=== PATIENT | female | born 1975 | race Caucasian/White ===

== ENCOUNTER 2020-08-20 12:27 | Emergency (ER) | payer OTHER, SELFPAY ==
--- NOTE | ~2020-08-20 | XR_ITS ---
EXAMINATION: XR chest 1V EXAM DATE: 08/20/2020 13:25 INDICATION: Shortness of breath. TECHNIQUE: Frontal and lateral projections of the chest obtained and reviewed. Comparison is made to prior examination from 03/18/2018. FINDINGS: Small linear left perihilar scarring. The lungs are otherwise clear. There are no pleural effusions. The cardiomediastinal silhouette is within normal limits. There is no pneumothorax suspe cted. Cervical hardware. Cholecystectomy clips. Contrast in the stomach. IMPRESSION: No acute cardiopulmonary findings. Reviewed, dictated and finalized at location A.
--- NOTE | ~2020-08-20 | CT_ITS ---
EXAMINATION: CT cervical spine wo [facility] EXAM DATE: 08/20/2020 13:02 INDICATION: Neck pain. TECHNIQUE: Spiral CT of the cervical spine was performed without contrast. Axial images were reviewe d. Coronal and sagittal reformatted images were also reviewed. The dose-length product (DLP) for thi s examination was 492.91 mGy-cm. The exposure was tailored according to patient size (auto mA exposu re control), and iterative reconstruction (ASIR) was used as additional dose reduction technique. ere is no prior study for comparison. FINDINGS: There are disc replacements at C5-6 and C6-7. C6 has almost complete loss of its height an d there is been some loss of C5 and C7 causing kyphosis. There are no bony erosions identified. Dario sammi soft tissue is unremarkable. There are no acute fractures identified. The odontoid process is i ntact. The lateral masses of C1 line up with C2. Level by level evaluation: C2-C3: Disc does not extend beyond the endplate margin. Uncovertebral joint arthropathy: None. Facet joint arthropathy: Mild bilateral. Neural foraminal stenosis: No stenosis. Central canal stenosis: No stenosis. C3-C4: Disc does not extend beyond the endplate margin. Uncovertebral joint arthropathy: None. Facet joint arthropathy: Mild to moderate right, mild left. Neural foraminal stenosis: No stenosis. Central canal stenosis: No stenosis. C4-C5: Disc does not extend beyond the endplate margin. Uncovertebral joint arthropathy: None. Facet joint arthropathy: Mild bilateral. Neural foraminal stenosis: No stenosis. Central canal stenosis: No stenosis. C5-C6: There is disc replacement. Uncovertebral joint arthropathy: Moderate bilateral, left greater than right. Facet joint arthropathy: Mild to moderate left, mild right. Neural foraminal stenosis: Moderate left, mild right. Central canal stenosis: Mild. C6-C7: Disc does not extend beyond the endplate margin. Uncovertebral joint arthropathy: Mild to moderate bilateral. Facet joint arthropathy: Mild to moderate bilateral. Neural foraminal stenosis: No stenosis. Central canal stenosis: No stenosis. C7-T1: Disc does not extend beyond the endplate margin. Uncovertebral joint arthropathy: None. Facet joint arthropathy: Mild bilateral. Neural foraminal stenosis: No stenosis. Central canal stenosis: No stenosis. IMPRESSION: 1. No acute cervical findings. 2. Moderate left neural foraminal stenosis at C5-6. 3. C5-6 and C6-7 disc replacements with osseous fusion, loss of these vertebral body heights and kyp hosis. Reviewed, dictated and finalized at location A. IMPRESSION: 1. No acute cervical findings. 2. Moderate left neural foraminal stenosis at C5-6. 3. C5-6 and C6-7 disc replacements with osseous fusion, loss of these vertebra l body heights and kyphosis.
--- NOTE | ~2020-08-20 | XR_ITS ---
EXAMINATION: XR barium swallow EXAM DATE: 08/20/2020 13:25 INDICATION: Difficulty swallowing. Cervical surgery, states history of MRSA infection. TECHNIQUE: thick contrast barium esophagram examination was performed in the upright position. Pulse d dose reduction fluoroscopy was used with fluoroscopic time of0.4 minutes. A total of 83 images ob tained for the exam. The DAP for this procedure was 1.8 Gycm2. Correlation is made to CT cervical spi ne 08/20/2020. FINDINGS: The pharynx is symmetric and without evidence of mass lesion or mucosal irregularity. Ther e is no esophageal stricture or mass identified. There are no esophageal diverticula. Small sliding gastroesophageal hiatal hernia. IMPRESSION: Small sliding gastroesophageal hiatal hernia. Reviewed, dictated and finalized at location A.
[2020-08-20 12:30] VITALS: PULSE 91; RESP 16; TEMP 36.2; O2SAT 97
[2020-08-20 12:36] VITALS: O2SAT 98
--- NOTE | 2020-08-20 12:36 | ECG_ITS ---
Measurements Intervals [place] Rate: 91 P: 47 WA: 179 QRS: 15 QRSD: 94 T: 35 QT: 286 QTc: 352 Interpretive Statements SINUS RHYTHM NONSPECIFIC ST & T-WAVE ABNORMALITY- DIFFUSE LEADS BORDERLINE ECG Electronically Signed On 08-20-2020 13:09:08 CDT by Guillermo Mendoza D.O.
--- NOTE | 2020-08-20 13:02 | ED.GENADULT ---
HPI - General Adult General Chief complaint: Shortness of Breath/Dyspnea Stated complaint: SOB Time Seen by Provider: 08/20/20 12:34 Source: patient, EMS and RN notes reviewed Mode of arrival: EMS Limitations: no limitations History of Present Illness HPI narrative: Patient is 45 years old white female presents to the ED with raspy voice, difficulty swallowing and pain in the throat and difficulty breathing started yesterday morning. Patient was seen by her neurosurgeon 1 week ago because of right upper extremity pain, patient is telling me that she is not a candidate for any surgery because her body will not take anesthesia anymore. History of vocal cord paralysis,, cervical fusion, history of COVID-19 infection June 2020, patient is DNR. Patient's boyfriend told me that patient been having raspy voice since she had COVID-19 infection June 2020. Patient reported that is worse than before. Related Data Home Medications Medication Instructions Recorded Confirmed levofloxacin 500 mg tablet 500 mg PO DAILY 04/28/19 08/12/20 medical cannabis #1 ea 10/15/19 08/12/20 Allergies Allergy/AdvReac Type Severity Reaction Status Date / Time cephalexin Allergy Severe Swelling Verified 08/20/20 12:53 of Lip/Tongue/Throat bupropion Allergy Unknown HIVES Verified 08/20/20 12:38 naproxen Allergy Unknown unknown Verified 08/20/20 12:38 Review of Systems Review of Systems: Narrative: CONSTITUTIONAL: Denies fever, chills, or sweats. EYES: Denies visual changes, redness, or discharge. ENT: Denies rhinorrhea, congestion, sore throat, or otalgia. CARDIOVASCULAR: Denies chest pain, palpitations, or edema. RESPIRATORY: Denies cough or dyspnea. GASTROINTESTINAL: Denies abdominal pain, nausea, vomiting, or diarrhea. GENITOURINARY: Denies dysuria or hematuria. SKIN: Denies rash or itching. MUSCULOSKELETAL: Denies back pain, joint pain, or myalgia. NEUROLOGIC: Denies headache, numbness, or weakness. PSYCHIATRIC: Denies anxiety or depression. COUNT INCLUDES THE [facility] Past Medical History Medical History BMI 37.0-37.9, adult BMI 38.0-38.9,adult COPD (chronic obstructive pulmonary disease) COVID-19 (~06/22/20) Edema, peripheral Elevated liver enzymes Essential (primary) hypertension Migraine headache without aura Neuropathy Tension headache, chronic Tobacco use disorder, continuous UTI (urinary tract infection) Family History Family History Grandparent Diabetes mellitus, Onset Age: 77 Family history of cardiovascular disease Family history of kidney disease, Onset Age: 80 Family history of chronic obstructive pulmonary disease Family history of pancreatic cancer Family history of congestive heart failure Father Asthma Patient's father is in good health Mother Patient's mother is in good health Social History Social History Smoking status: Never smoker Alcohol intake: current Drinks per week: 1 Substance use: current Substance use type: marijuana Other substance usage details: medical marijuana Exam Narrative: Exam Narrative: General appearance: Well-developed, well-nourished, raspy voice, boyfriend at the bedside Skin: Normal color Head: Normocephalic, nontraumatic Eyes: Clear conjunctiva ENT: Oropharynx normal, ears normal, nose normal Neck: Supple, nontender Chest and respiratory: Airway patent, no respiratory distress, no accessory muscle use Heart: Regular rate/rhythm Abdomen: Soft, nontender, no organomegaly, quiet bowel sounds Vascular: Normal peripheral pulses, normal capillary refill. Musculoskeletal: Normal range of motion, nontender back Neurologic: Alert and oriented ?3, SEISMIC PLOTTER is normal as tested, no gross motor deficit
[2020-08-20 13:36] LABS: Basophils Percent Auto 0.5 % (0.2-1.2); Eosinophils Absolute Auto 0.2 K/mm3 (0-0.3); Eosinophils Percent Auto 3.1 % (0-4.4); Hematocrit 37.6 % (37.0-47.0); Hemoglobin 13.3 g/dL (12.0-15.0); Immature Granulocyte Absolute 0.02 K/mm3 (0.00-0.031); Immature Granulocyte Percent A 0.3 % (0-0.5); Lymphocytes Absolute Auto 2.65 K/mm3 (0.9-3.2); Lymphocytes Percent Auto 45.1 % (18.3-44.2); Mean Corpuscular HGB Conc 35.4 g/dl (32-36); Mean Corpuscular Hemoglobin 33.7 pg (26-34); Mean Corpuscular Volume 95.2 fl (80-100); Mean Platelet Volume 9.1 fl (7.4-10.4); Monocytes Absolute Auto 0.4 K/mm3 (0.1-0.6); Monocytes Percent Auto 6.5 % (2.6-8.5); Neutrophils Absolute Auto 2.6 K/mm3 (1.3-6.7); Neutrophils Percent Auto 44.5 % (45.5-73.1); Platelet Count Result 255 k/mm3 (150-375); Red Blood Count 3.95 M/mm3 (4.2-5.4); White Blood Count 5.9 K/mm3 (4.5-10.0)
[2020-08-20] MEDS: MORPHINE SULFATE (*CRX) 4 MG/ML INJ IV PUSH (13:46)
[2020-08-20 13:47] VITALS: BP 118/92; PULSE 89; RESP 20; O2SAT 98
[2020-08-20] MEDS: ONDANSETRON INJ 4 MG/2 ML VIAL IV PUSH (13:47)
[2020-08-20 13:48] LABS: Alanine Aminotransferase 39 U/L (4-35); Albumin Level 4.3 g/dL (3.5-5.1); Alkaline Phosphatase 74 U/L (38-126); Anion Gap 7 mmol/L (8-16); Aspartate Amino Transferase 36 U/L (14-36); Bilirubin,Total 0.2 mg/dL (0.2-1.3); Blood Urea Nitrogen 15 mg/dL (7-17); Calcium 9.2 mg/dL (8.4-10.2); Carbon Dioxide 27 mmol/L (22-30); Chloride 107 mmol/L (98-107); Estimated CRCL calculation 80 ml/min; Estimated Glomerular Filt Rate > 60; Glucose 101 mg/dL (65-105); Sodium 141 mmol/L (137-145)
[2020-08-20 14:28] VITALS: BP 113/99; PULSE 81; RESP 18; O2SAT 100
[2020-08-20] MEDS: POTASSIUM CHLORIDE 20 MEQ PACKET (FOR LIQUID) 40 MEQ PO (15:22)
== END 2020-08-20 16:30 | disposition home or self-care (01) ==
PROVIDERS: Emergency Provider Emergency Medicine; PCP Family Medicine
DX: J02.9 Acute pharyngitis, unspecified (principal); E87.6 Hypokalemia; M54.12 Radiculopathy, cervical region; M48.02 Spinal stenosis, cervical region; Z86.16 Personal history of COVID-19; Z98.1 Arthrodesis status; K44.9 Diaphragmatic hernia without obstruction or gangrene; R94.31 Abnormal electrocardiogram [ECG] [EKG]
CPT/HCPCS: 36415; 71045; 72125; 74220; 80053; 85025; 87081; 87880; 93005; 96374; 96375; 99284; A9270; J2270; J2405

== ENCOUNTER 2020-09-01 02:21 | Day surgery (SDC) | payer OTHER, SELFPAY ==
[2020-08-23 14:20] VITALS: BMI 34.4
[2020-09-01 08:01] VITALS: BP 133/85; PULSE 102; RESP 18; TEMP 36.9; O2SAT 96; BMI 35.8
[2020-09-01] MEDS: LACTATED RINGERS 1,000 ML 150 ML IV CONT (08:13)
--- NOTE | 2020-09-01 08:22 | WPDANESEPPF ---
Anes - Initial Pre Proc Eval Procedure: Operation Date: 09/01/20 09:15 Proposed Procedures p Esophagogastroduodenoscopy - Edi Stauffer MD Date/Time: 09/01/20 08:22 Surgeon: Edi Stauffer MD Pre Op Diagnosis: GERD, esophagitis Patient Data Age: 45 Gender: F Height: 5 ft 4 in Weight: 94.6 kg Last Vital Signs Temp 98.4 F 09/01/20 08:01 Pulse 102 H 09/01/20 08:01 Resp 18 09/01/20 08:01 BP 133/85 09/01/20 08:01 Pulse Ox 96 09/01/20 08:01 Allergies Allergy/AdvReac Type Severity Reaction Status Date / Time cephalexin Allergy Severe Swelling Verified 09/01/20 07:56 of Lip/Tongue/Throat bupropion Allergy Unknown HIVES Verified 09/01/20 07:56 naproxen Allergy Unknown unknown Verified 09/01/20 07:56 shrimp Allergy Swelling Verified 09/01/20 07:58 Home Medications Medication Instructions Recorded Confirmed Type medical cannabis #1 ea 10/15/19 08/23/20 History sumatriptan succinate 100 mg tablet 100 mg PO .COMPLEX PRN #10 tablet 02/20/20 09/01/20 Rx [id number]-rhxcsnbhnpidt-[id number] 1 cap PO Q6H PRN #60 cap 03/01/20 09/01/20 Rx 50 mg-300 mg-40 mg capsule albuterol sulfate 90 mcg/actuation 2 inh INHALATION Q4H PRN #54 g 04/01/20 09/01/20 Rx aerosol inhaler esomeprazole magnesium 40 mg 40 mg PO DAILY #30 cap 04/01/20 09/01/20 Rx capsule,delayed release hydrochlorothiazide 12.5 mg tablet 12.5 mg PO DAILY #90 tablet 04/01/20 09/01/20 Rx duloxetine 60 mg capsule,delayed 60 mg PO BID #180 cap 04/08/20 09/01/20 Rx release umeclidinium 62.5 mcg-vilanterol 1 inh INHALATION DAILY #180 ea 04/08/20 09/01/20 Rx 25 mcg/actuation powdr for inhalation diazepam 5 mg tablet 10 mg PO BID PRN #60 tablet 07/12/20 09/01/20 Rx tramadol 50 mg tablet 50 mg PO .COMPLEX PRN #240 tablet 07/29/20 09/01/20 Rx lisinopril 40 mg tablet 40 mg PO DAILY #90 tablet 08/12/20 09/01/20 Rx potassium chloride 40 meq PO BID 4 Days #120 ml 08/20/20 09/01/20 Rx acetaminophen 300 mg-codeine 30 mg 1 tablet PO Q4-6H PRN #120 tablet 08/25/20 09/01/20 Rx tablet Patient hx anesthesia problems: none Family hx anesthesia problems: none PMFSH Past Medical History Medical History BMI 37.0-37.9, adult BMI 38.0-38.9,adult COPD (chronic obstructive pulmonary disease) COVID-19 (~06/22/20) Edema, peripheral Elevated liver enzymes Essential (primary) hypertension Migraine headache without aura Neuropathy Tension headache, chronic Tobacco use disorder, continuous UTI (urinary tract infection) Family History Family History Grandparent Diabetes mellitus, Onset Age: 77 Family history of cardiovascular disease Family history of kidney disease, Onset Age: 80 Family history of chronic obstructive pulmonary disease Family history of pancreatic cancer Family history of congestive heart failure Father Asthma Patient's father is in good health Mother Patient's mother is in good health Social History Social History Smoking status: Never smoker Alcohol intake: current Drinks per week: 1 Substance use: current Substance use type: marijuana Other substance usage details: MEDICAL MARIJUANA Living arrangements: with family Gender identity (if verbalized by the patient): Female Spiritual care concerns: No Anes - Eval Final PreProcedure Day of Procedure 09/01/20 08:22 Patient weight: overweight Heart: regular rate and rhythm Lungs: clear to auscultation Airway: Mallampati scale class III Neurological: alert and oriented Last oral intake: >/= 8 hours ASA classification: III Emergent: no Anesthetic plan: proceed Anesthesia type and monitoring: general GIVS and standard monitoring Informed Consent: The patient's anesthetic plan and its attendant risks and benefits were discussed with the patient/family
--- NOTE | 2020-09-01 09:23 | PM.HPGS ---
History of Present Illness History of Present Illness Consent: Risks, benefits, and alternatives have been discussed and questions answered. Patient agrees to proceed with procedure. Chief complaint: GERD, esophagitis Narrative: Mabel England is a 45 year old female with chronic neck pain with previous cervical osteomyelitis after surgery, vocal cord paralysis. EGD few years ago. She continues to have some reflux symptoms despite Nexium 40 mg daily. Review of Systems Constitutional: Constitutional: Denies headache(s) and Denies weakness Eyes: Eyes: Denies blurry vision ENT: Reports Normal hearing present, Denies headache(s) and Denies neck pain Cardiovascular: Cardiovascular: Denies chest pain and Denies dyspnea Respiratory: Respiratory: Denies dyspnea Gastrointestinal: Gastrointestinal: Reports no additional gastrointestinal complaints Genitourinary: Genitourinary: Denies dysuria Musculoskeletal: Musculoskeletal: Denies neck pain Integumentary/Breasts: Skin/Breast: Denies dry skin Neurologic: Reports Normal hearing present, Denies headache(s) and Denies weakness Psychiatric: Psychiatric: Denies anxiety Endocrine: Endocrine: Denies change in body appearance Hematologic/Lymphatic: Hematologic/Lymphatic: Denies easy bleeding Allergic/Immunologic: Allergic/Immunologic: Denies urticaria PMFSH Past Medical History Medical History BMI 37.0-37.9, adult BMI 38.0-38.9,adult COPD (chronic obstructive pulmonary disease) COVID-19 (~06/22/20) Edema, peripheral Elevated liver enzymes Essential (primary) hypertension Migraine headache without aura Neuropathy Tension headache, chronic Tobacco use disorder, continuous UTI (urinary tract infection) Family History Family History Grandparent Diabetes mellitus, Onset Age: 77 Family history of cardiovascular disease Family history of kidney disease, Onset Age: 80 Family history of chronic obstructive pulmonary disease Family history of pancreatic cancer Family history of congestive heart failure Father Asthma Patient's father is in good health Mother Patient's mother is in good health Social History Social History Smoking status: Never smoker Alcohol intake: current Drinks per week: 1 Substance use: current Substance use type: marijuana Other substance usage details: MEDICAL MARIJUANA Living arrangements: with family Gender identity (if verbalized by the patient): Female Spiritual care concerns: No Meds Home Medications and Allergies Home Medications Medication Instructions Recorded Confirmed Type medical cannabis #1 ea 10/15/19 08/23/20 History sumatriptan succinate 100 mg tablet 100 mg PO .COMPLEX PRN #10 tablet 02/20/20 09/01/20 Rx mtiybuimfe-ewvxdwvsabhsy-hmnwfged 1 cap PO Q6H PRN #60 cap 03/01/20 09/01/20 Rx 50 mg-300 mg-40 mg capsule albuterol sulfate 90 mcg/actuation 2 inh INHALATION Q4H PRN #54 g 04/01/20 09/01/20 Rx aerosol inhaler esomeprazole magnesium 40 mg 40 mg PO DAILY #30 cap 04/01/20 09/01/20 Rx capsule,delayed release hydrochlorothiazide 12.5 mg tablet 12.5 mg PO DAILY #90 tablet 04/01/20 09/01/20 Rx duloxetine 60 mg capsule,delayed 60 mg PO BID #180 cap 04/08/20 09/01/20 Rx release umeclidinium 62.5 mcg-vilanterol 1 inh INHALATION DAILY #180 ea 04/08/20 09/01/20 Rx 25 mcg/actuation powdr for inhalation diazepam 5 mg tablet 10 mg PO BID PRN #60 tablet 07/12/20 09/01/20 Rx tramadol 50 mg tablet 50 mg PO .COMPLEX PRN #240 tablet 07/29/20 09/01/20 Rx lisinopril 40 mg tablet 40 mg PO DAILY #90 tablet 08/12/20 09/01/20 Rx potassium chloride 40 meq PO BID 4 Days #120 ml 08/20/20 09/01/20 Rx acetaminophen 300 mg-codeine 30 mg 1 tablet PO Q4-6H PRN #120 tablet 08/25/20 09/01/20 Rx tablet Allergies Allergy/AdvReac Type Severity Reaction
[2020-09-01 09:36] VITALS: BP 137/67; PULSE 87; RESP 16; O2SAT 99
[2020-09-01 09:46] VITALS: BP 115/45; PULSE 86; RESP 20; O2SAT 100
[2020-09-01 09:56] VITALS: BP 131/74; PULSE 79; RESP 16; O2SAT 100
== END 2020-09-01 10:14 | disposition home or self-care (01) ==
PROVIDERS: PCP Family Medicine; Visit Provider Internal Medicine Gastroenterology
PROC: 0DJ08ZZ Inspection of Upper Intestinal Tract, Via Natural or Artificial Opening Endoscopic (ICD-10-PCS; CPT 43235; principal; 2020-09-01 09:15)
DX: K21.9 Gastro-esophageal reflux disease without esophagitis (principal); K44.9 Diaphragmatic hernia without obstruction or gangrene; K29.50 Unspecified chronic gastritis without bleeding; J44.9 Chronic obstructive pulmonary disease, unspecified; I10 Essential (primary) hypertension; G62.9 Polyneuropathy, unspecified; Z86.16 Personal history of COVID-19; F12.90 Cannabis use, unspecified, uncomplicated; Z79.51 Long term (current) use of inhaled steroids
CPT/HCPCS: 43239; 88305; J2704; J7120

== ENCOUNTER → 2021-03-02 11:02 | Outpatient (CLI) | payer MEDICARE, MEDICAID, SELFPAY ==
--- NOTE | ~2021-03-02 | XR_ITS ---
XR wrist RT min 3V DATE: 03/02/2021 11:17 INDICATION: Right ulnar wrist pain. No known trauma TECHNIQUE: 4 views COMPARISON: None FINDINGS: No fracture or dislocation, periosteal reaction or bone destruction, erosive change or tristen drocalcinosis. There is mild osteophyte is at the first metacarpophalangeal joint. 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
== END ==
PROVIDERS: PCP Family Medicine; Visit Provider Nurse Practitioner Family
DX: M19.031 Primary osteoarthritis, right wrist (principal)
CPT/HCPCS: 73110

== ENCOUNTER → 2021-07-11 11:23 | Outpatient (CLI) | payer MEDICARE, MEDICAID, SELFPAY ==
--- NOTE | ~2021-07-11 | XR_ITS ---
EXAMINATION: XR lumbar spine min 4V DATE: 07/11/2021 11:40 INDICATION: Low back pain with sciatica TECHNIQUE: Anteroposterior, lateral, and bilateral oblique views of the lumbar spine, and cone-down l ateral view of the lumbosacral junction were obtained. COMPARISON: CT, 08/17/2014 FINDINGS: There is no fracture. There are 3 mm of unchanged retrolisthesis of L5 on S1. Vertebral bod y alignment is otherwise maintained. The vertebral body heights are normal. There is mild facet osteo arthritis of the lower lumbar spine. Cholecystectomy clips are noted in the right upper quadrant. IMPRESSION: 1. Mild lumbar spondylosis without acute findings or significant interval change. Reviewed, dictated and finalized at location F. GEOLOGIST IMPRESSION: 1. Mild lumbar spondylosis without acute findings or significant interval vicente calhoun
== END ==
PROVIDERS: PCP Family Medicine; Visit Provider Family Medicine
DX: M47.896 Other spondylosis, lumbar region (principal)
CPT/HCPCS: 72110

== ENCOUNTER 2021-09-20 07:14 | Outpatient (CLI) | payer MEDICARE, MEDICAID, SELFPAY ==
--- NOTE | 2021-09-28 12:10 | WPDHOMESLEEP ---
Sleep Study - Home Unattended Date of Study: 09/20/21 Ordering Provider: Dave Patel MD Interpreting Provider: Fallon Tavarez MD Home Sleep Study Type: Apnea Link Air Height: 1.63 m Weight: 88.451 kg Body Mass Index: 33.5 Neck Circumference (inches): 16 Dexter: 11 Reason for Sleep Study Hypersomnia Sleep History Mabel England is a 46 year old female with daytime hypersomnolence. Her Dexter Sleepiness Scale scores 11. She frequently awakens from sleep feeling short of breath. She constantly awakens at night with heartburn, belching or coughing. She occasionally snores. She does not snore loudly enough that others complain about it. She frequently has trouble sleep with a cold. She frequently wakes up gasping for breath at night. She does not have breathing problems at night observed by others. She constantly sweats excessively at night. She occasionally notices her heart pounding or beating irregularly night. She occasionally falls asleep during the day, occasionally falls asleep involuntarily however never falls asleep while driving. She occasionally has loss of muscle tone with strong emotion. she does not have daytime difficulties due to excessive sleepiness. She occasionally feels paralyzed on waking or falling asleep. She does not have vivid dreamlike scenes upon awakening or falling asleep. She occasionally feels afraid to go to sleep. She occasionally has nightmares. On occasion she remembers her dreams. She constantly has racing thoughts, feelings of sadness, depression and anxiety. She could constantly has muscular tension and constantly notices parts of her body jerking. She rarely kicks at night. She frequently has crawling and aching feelings in her legs and leg pain during the night. She does not have morning jaw pain. She does not grind her teeth during sleep. She constantly is bothered by pain during the day, constantly awakened by pain at night and constantly wakes up feeling stiff in the morning with sore achy muscles and pain in the neck and spine. She has fatigue, sexual problems, memory and concentration difficulties, takes antacids regularly, has depression and headaches. Normal Bedtime is not a fixed time. She goes to sleep whenever she is able to go to sleep. He takes hours for her to fall asleep. She wakes up several times during the night. When she awakens at night she may serve the web. She wakes the morning at 6:00 a.m.. She estimates getting 4 hours of sleep overnight. She may stay in bed all day and sometimes she jumps right up to start today. She does not take naps in the afternoon or evening. A short nap is not refreshing. She is usually drowsy for 3 hours after waking. Habits: Tobacco 1/2 pack per day. No caffeine, alcohol or recreational drugs. [facility] Past Medical History Medical History Acute bronchitis BMI 35.0-35.9,adult BMI 36.0-36.9,adult BMI 37.0-37.9, adult BMI 38.0-38.9,adult Chronic depression Chronic low back pain with bilateral sciatica X-ray of the lumbar spine on 07/11/2021 reveals mild spondylosis and facet arthropathy with 3 mm of retrolisthesis of L5 on S1 COPD (chronic obstructive pulmonary disease) COVID-19 (~06/22/20) Eczema Edema, peripheral Elevated liver enzymes Essential (primary) hypertension Gastritis (09/01/20) EGD on 09/01/2020 Hypersomnia Migraine headache without aura Neuropathy Obesity (BMI 30-39.9) Rash and nonspecific skin eruption Right wrist pain CT of the right wrist on 07/12/2021 revealed 1st extensor compartment tendinopathy and tenosynovitis with possible tendon rupture. Ordered by orthopedic surgeon Tension headache, chronic Tobacco use disorder, continuous UTI (urinary tract infection) Family History Family History Grandparent Diabetes mellitus, Onset Age: 77 Family history of cardiovascular disease Family
[2021-09-28 12:29] VITALS: BMI 33.5
== END 2021-09-22 15:40 | disposition home or self-care (01) ==
PROVIDERS: PCP Family Medicine; Visit Provider Family Medicine
DX: G47.10 Hypersomnia, unspecified (principal); G47.33 Obstructive sleep apnea (adult) (pediatric); G25.81 Restless legs syndrome; Z68.33 Body mass index [BMI] 33.0-33.9, adult
CPT/HCPCS: 95806

== ENCOUNTER 2023-06-27 14:01 | Outpatient (CLI) | payer MEDICARE, MEDICAID, SELFPAY ==
--- NOTE | ~2023-06-27 | XR_ITS ---
EXAMINATION: XR cervical spine 4-5V DATE: 06/27/2023 14:24 INDICATION: Neck pain. TECHNIQUE: 4 views of cervical spine were obtained. COMPARISON: CT cervical spine 08/20/2020, cervical spine radiographs 01/05/17 FINDINGS: There is kyphosis of lower cervical spine. There are changes of disc replacements at C5-C6 and C6-C7. There is bridging interbody bone at C5-C6 and C6-C7. There is chronic anterior wedging of C6 and C7 vertebral bodies. There is moderate facet joint osteoarthritis at C7-T1. There is mild cent ral canal stenosis at C5-C6 and C6-C7. IMPRESSION: 1. Disc replacement procedures at C5-C6 and C6-C7 complicated by interbody fusion, chronic vertebral body anterior wedging, and focal kyphosis, stable from 08/20/20. Reviewed, dictated and finalized at location E. NURSE IMPRESSION: 1. Disc replacement procedures at C5-C6 and C6-C7 complicated by interbody fusi on, chronic vertebral body anterior wedging, and focal kyphosis, stable from 08/20/20.
== END 2023-06-27 14:02 | disposition home or self-care (01) ==
PROVIDERS: PCP Family Medicine; Visit Provider Family Medicine
DX: M46.22 Osteomyelitis of vertebra, cervical region (principal)
CPT/HCPCS: 72050

== ENCOUNTER 2023-10-30 02:36 | Day surgery (SDC) | payer MEDICARE, MEDICAID, SELFPAY ==
[2023-10-23 14:50] VITALS: BMI 34.4
[2023-10-30 07:55] VITALS: BP 138/85; PULSE 98; RESP 20; TEMP 36.3; O2SAT 98
[2023-10-30] MEDS: LACTATED RINGERS 1,000 ML 150 ML IV CONT (08:13)
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
[2023-10-30 09:30] VITALS: BP 149/99; PULSE 78; RESP 21; O2SAT 99
[2023-10-30 09:40] VITALS: BP 128/77; PULSE 73; RESP 14; O2SAT 100
[2023-10-30 09:50] VITALS: BP 140/83; PULSE 73; RESP 14; O2SAT 100
== END 2023-10-30 10:00 | disposition home or self-care (01) ==
PROVIDERS: PCP Family Medicine; Visit Provider Surgery
PROC: 0DJD8ZZ Inspection of Lower Intestinal Tract, Via Natural or Artificial Opening Endoscopic (ICD-10-PCS; CPT 45378; principal; 2023-10-30 09:00)
DX: Z12.11 Encounter for screening for malignant neoplasm of colon (principal); I10 Essential (primary) hypertension; J44.9 Chronic obstructive pulmonary disease, unspecified; F17.210 Nicotine dependence, cigarettes, uncomplicated; F12.90 Cannabis use, unspecified, uncomplicated; Z79.51 Long term (current) use of inhaled steroids; Z79.85 Long-term (current) use of injectable non-insulin antidiabetic drugs; Z79.891 Long term (current) use of opiate analgesic
CPT/HCPCS: G0121; J2704; J7120

== ENCOUNTER 2024-03-21 14:03 | Outpatient (CLI) | payer MEDICARE, MEDICAID, SELFPAY ==
--- NOTE | ~2024-03-21 | US_ITS ---
EXAMINATION: US venous doppler [facility] DATE: 03/21/2024 14:43 INDICATION: Lower limb pain and swelling. TECHNIQUE: Grayscale ultrasound images without and with compression and Doppler ultrasound images of the bilateral lower extremity veins were obtained. COMPARISON: None. FINDINGS: The visualized portions of right common femoral vein, profunda (deep) femoral vein, femoral vein, pop liteal vein, peroneal veins, posterior tibial veins, and greater saphenous vein outflow are patent. The visualized portions of left common femoral vein, profunda femoral vein, femoral vein, popliteal v ein, peroneal veins, posterior tibial veins, and greater saphenous vein outflow are patent. IMPRESSION: 1. No deep venous thrombosis. Reviewed, dictated and finalized at location B.
[2024-03-21 15:07] LABS: Basophils Percent Auto 0.6 % (0.2-1.2); Eosinophils Absolute Auto 0.2 K/mm3 (0-0.3); Eosinophils Percent Auto 3.3 % (0-4.4); Hematocrit 43.6 % (37.0-47.0); Hemoglobin 14.9 g/dL (12.0-15.0); Immature Granulocyte Absolute 0.05 K/mm3 (0.00-0.031); Immature Granulocyte Percent A 0.7 % (0-0.5); Lymphocytes Absolute Auto 3.14 K/mm3 (0.9-3.2); Lymphocytes Percent Auto 43.6 % (18.3-44.2); Mean Corpuscular HGB Conc 34.2 g/dl (32-36); Mean Corpuscular Hemoglobin 32.5 pg (26-34); Mean Platelet Volume 9.7 fl (7.4-10.4); Monocytes Absolute Auto 0.4 K/mm3 (0.1-0.6); Monocytes Percent Auto 5.7 % (2.6-8.5); Neutrophils Absolute Auto 3.3 K/mm3 (1.3-6.7); Neutrophils Percent Auto 46.1 % (45.5-73.1); Platelet Count Result 254 k/mm3 (150-375); Red Blood Count 4.59 M/mm3 (4.2-5.4); Red Cell Distribution Width 12.7 % (11.5-14.5); White Blood Count 7.2 K/mm3 (4.5-10.0)
[2024-03-21 15:20] LABS: Alanine Aminotransferase 33 U/L (6-35); Albumin Level 4.6 g/dL (3.5-5.1); Alkaline Phosphatase 65 U/L (38-126); Anion Gap 6 mmol/L (4-12); Aspartate Amino Transferase 33 U/L (14-36); Bilirubin,Total 0.5 mg/dL (0.2-1.3); Blood Urea Nitrogen 20 mg/dL (7-17); Calcium 9.6 mg/dL (8.4-10.2); Carbon Dioxide 28 mmol/L (22-30); Chloride 104 mmol/L (98-107); Estimated Glomerular Filt Rate > 60; Glucose 98 mg/dL (65-110); Potassium 3.8 mmol/L (3.4-5.0); Sodium 138 mmol/L (137-145)
[2024-03-21 15:33] LABS: D Dimer 0.37 ug/mL (<0.48)
[2024-03-21 15:48] LABS: Erythrocyte Sedimentation Rate 6 mm/hr (0-20)
== END 2024-03-21 14:04 | disposition home or self-care (01) ==
PROVIDERS: PCP Family Medicine; Visit Provider Family Medicine
DX: R60.0 Localized edema (principal); M46.22 Osteomyelitis of vertebra, cervical region
CPT/HCPCS: 36415; 80053; 85025; 85380; 85652; 93970